=== PATIENT | male | born 1985 | race Caucasian/White ===

== ENCOUNTER 2022-11-27 05:57 | Emergency (ER) | payer OTHER, SELFPAY ==
[2022-11-27 06:02] VITALS: BP 147/80; PULSE 106; RESP 16; TEMP 36.7; O2SAT 100
[2022-11-27 06:07] VITALS: BP 131/76; PULSE 99; RESP 13; TEMP 36.6; O2SAT 100
--- NOTE | 2022-11-27 06:13 | PC.NURSE ---
Addendum entered by Manuel Canada RN 11/27/22 06:16: Patient stated he took 1 5mg Tadalafil and 1 Claritin. Original Note: Patient stated he was worried about taking a Claritin and Tadalafil.
--- NOTE | 2022-11-27 06:31 | ED_ITS ---
HPI - Anxiety General Chief Complaint: Anxiety Stated Complaint: anxiety Time Seen by Provider: 11/27/22 06:31 History of Present Illness HPI narrative: Patient very nervous because he had taken a dose of Cialis and Zyrtec at the same time, and then panicked about whether or not they may interact with each other. He has history of anxiety and they usually get better with just meditation. Related Data Allergies Allergy/AdvReac Type Severity Reaction Status Date / Time No Known Allergies Allergy Verified 11/27/22 06:08 Review of Systems Review of Systems: CONST: No fever. HEENT: No sore throat C/V: Palpitations RESP: No cough GI: No abdominal pain : No dysuria. M/S: No joint pain. SKIN: No rash. NEURO: [No headache or focal numbness or weakness] PSYCH: Anxiety [facility] Past Medical History Medical History (Updated 11/27/22 @ 06:43 by Melanie Dee MD) Anxiety Social History Social History Substance use type: does not use Exam Narrative: EXAMINATION OF ORGAN SYSTEMS/BODY AREAS: Constitutional: Vital signs per nursing GENERAL:[No acute distress, non-toxic appearing.] HEAD: Normal with no signs of head trauma. EYES: EOMI, conjunctiva normal ENT: Hearing grossly intact LUNGS: Nonlabored breathing. HEART: Initially tachycardic ABD: [Soft], [nontender to palpation] EXT: Normal range of motion SKIN: [No rashes or lesions.] NEURO: [Alert and oriented x 3. No gross focal sensory or strength deficits.] PSYCH: Anxious affect Course Vital Signs Vital signs: Vital Signs Temperature 98.0 F 11/27/22 06:02 Pulse Rate 106 H 11/27/22 06:02 Respiratory Rate 16 11/27/22 06:02 Blood Pressure 147/80 H 11/27/22 06:02 Pulse Oximetry 100 11/27/22 06:02 Oxygen Delivery Room Air 11/27/22 06:02 Temperature 98.3 F 11/27/22 06:48 Pulse Rate 88 11/27/22 06:48 Respiratory Rate 17 11/27/22 06:48 Blood Pressure 114/84 11/27/22 06:48 Pulse Oximetry 100 11/27/22 06:48 Oxygen Delivery Room Air 11/27/22 06:02 MDM - Anxiety MDM Narrative Medical decision making narrative: 37-year-old male presenting with anxiety that he should not have taken both Zyrtec and Cialis at the same time, after I reassured him that there are no obvious known interactions, he is feeling much better, states that his symptoms all resolved, his repeat heart rate is normal. He is well-appearing and wants to go home and did not want any other medications at this time. Given return precautions and followup with PCP. Discharge Plan Discharge Clinical Impression: Acute anxiety Patient Disposition: Home, Self-Care Condition: Improved Instructions: Antibiotic Form, Anxiety (ED) Additional Instructions: You can always return for any further issues; follow up with your doctor. Follow-up/Referrals: Cuong Mariscal MD [Physician] - 2 Days PHYSICIAN NOT ON STAFF,NONSTAFF [Non-Staff] -
[2022-11-27 06:48] VITALS: BP 114/84; PULSE 88; RESP 17; TEMP 36.8; O2SAT 100
== END 2022-11-27 06:49 | disposition home or self-care (01) ==
PROVIDERS: Emergency Provider Emergency Medicine; PCP Nurse Practitioner
DX: F41.9 Anxiety disorder, unspecified (principal)
CPT/HCPCS: 99281

== ENCOUNTER 2023-02-12 11:43 | Emergency (ER) | payer OTHER, SELFPAY ==
[2023-02-12 11:54] VITALS: BP 132/81; PULSE 89; RESP 16; TEMP 36.7; O2SAT 99
--- NOTE | 2023-02-12 12:07 | ED.NAVMDI ---
HPI - Nausea/Vomiting/Diarrhea General Chief complaint: Nausea/Vomiting/Diarrhea Stated complaint: Nausea Time Seen by Provider: 02/12/23 12:07 Source: patient and RN notes reviewed Mode of arrival: ambulatory Limitations: no limitations History of Present Illness HPI Narrative: 37 year old male presents to express care today with complaints of having interval of nausea and generalized weakness since . 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 Patient reports that he did not feel well over weekend either with nausea no vomiting and episodes of diarrhea stopping on Saturday with no evidence of any blood in stools. Patient states that he had a regular bowel movement this morning but continues to feel weak and have nausea. Patient reports no known fevers, chills, or sweats reports that child has been ill also. Patient has not taken any OTC medication. MD elicited complaint: nausea, diarrhea and other (weakness) Pertinent past history: other (IBS) Onset (ago): day(s) (4) Description of diarrhea: watery Associated nausea: Yes Associated abdominal pain: No Treatment prior to arrival: none Related Data Allergies Allergy/AdvReac Type Severity Reaction Status Date / Time corn Allergy Mild Unknown Verified 02/12/23 11:58 Cantaloupe Allergy Mild throat Uncoded 02/12/23 11:58 itching Review of Systems Review of Systems: CONSTITUTIONAL: Denies fever, chills, or sweats. ENT: Denies rhinorrhea, congestion, sore throat, or otalgia. CARDIOVASCULAR: Denies chest pain, palpitations, or edema. RESPIRATORY: Denies cough or dyspnea. GASTROINTESTINAL: Reports no abdominal pain, nausea, no vomiting, episodes of diarrhea. GENITOURINARY: Denies dysuria or hematuria. SKIN: Denies rash or itching. MUSCULOSKELETAL: Denies back pain, joint pain, or myalgia. NEUROLOGIC: Denies headache, numbness, or weakness. All systems reviewed & are unremarkable except as noted in HPI and below PMFSH Past Medical History Medical History (Updated 02/12/23 @ 12:54 by Carolyne Soliz NP) Anxiety IBS (irritable bowel syndrome) Social History Social History (Updated 02/12/23 @ 12:53 by Carolyne Soliz NP) Smoking status: Current every day smoker Tobacco type: cigarettes Alcohol intake: current Alcohol use details: socially Substance use type: does not use Comments At time of signature, agree with nursing past medical, surgical, social and family history. There is no relevant family history pertinent to the presenting complaint Exam Narrative: GENERAL: Well-appearing, well-nourished, and in no acute distress. HEAD: Normocephalic, atraumatic. EYES: PERRLA, conjunctivae clear, and EOMI. ENT: Nares clear. Mucous membranes moist. Oropharynx without edema, erythema, or lesions. Tonsils not enlarged and without exudate. NECK: Supple. No lymphadenopathy CHEST: Speaks in full sentences. No respiratory distress. HEART: Regular rate and rhythm. ABDOMEN: Soft, flat, nondistended. No guarding, rebound tenderness, or rigid. No pulsatilla masses. Bowel sounds present in all four quadrants. No organomegaly. Negative Valdes?s sign. No periumbilical tenderness. No Supra public tenderness or distension. Good femoral pulses bilaterally. No hernia noted. No scars or surface trauma. nausea at intervals no diarrhea since Saturday reported continues to have some nausea. SKIN: Warm, dry, no rash. NEURO:? Alert and oriented x3. PSYCH: Normal mood and affect Course Course Emergency Course: Patient is aware of diagnosis, understands and agrees to treatment plan.? Anticipatory guidance given.? Patient agrees to follow-up as directed and is aware of reasons to seek care at the emergency department. Portions of this record may have been created with voice recognition software Level of Care: Express Care Visit Vital Signs Vital signs: Vital Signs
[2023-02-12 12:21] VITALS: BP 127/77; PULSE 105
[2023-02-12 12:23] VITALS: BP 128/89; PULSE 86
[2023-02-12 12:25] VITALS: BP 118/72; PULSE 78
== END 2023-02-12 12:38 | disposition home or self-care (01) ==
PROVIDERS: Emergency Provider Registered Nurse; PCP Nurse Practitioner
DX: R11.0 Nausea (principal); R53.1 Weakness; F17.210 Nicotine dependence, cigarettes, uncomplicated
CPT/HCPCS: 99213; G0463

== ENCOUNTER 2023-02-16 12:02 | Emergency (ER) | payer OTHER, SELFPAY ==
--- NOTE | ~2023-02-16 | CT_ITS ---
EXAMINATION: CT abdomen pelvis w con DATE: 02/16/2023 16:01 INDICATION: Epigastric and left lower quadrant abdominal pain, nausea and diarrhea. TECHNIQUE: Computed tomography (CT) of the abdomen and pelvis was performed with 100 mL Omnipaque-350 intravenous contrast. Automated exposure control and iterative reconstruction technique were employe d. The dose-length product was 426.40 mGy-cm. COMPARISON: None FINDINGS: Lung bases are clear. Heart size is normal. No pericardial or pleural effusion. Liver, gallbladder, s pleen, pancreas, bilateral adrenal glands and kidneys are normal. Bowels including the appendix are n ormal bladder is normal. No free intraperitoneal gas or fluid. No pathologically enlarged abdominal o r pelvic lymphadenopathy. Moderate lower thoracic spondylosis. IMPRESSION: 1. No acute intra-abdominal/pelvic process. Reviewed, dictated and finalized at location A.
[2023-02-16 12:24] VITALS: BP 124/91; PULSE 103; RESP 16; TEMP 36.7; O2SAT 99
[2023-02-16 13:09] LABS: Basophils Percent Auto 0.5 % (0.2-1.2); Eosinophils Percent Auto 0.2 % (0-4.4); Hematocrit 51.3 % (42.0-52.0); Hemoglobin 17.8 g/dL (14.0-18.0); Immature Granulocyte Absolute 0.02 K/mm3 (0.00-0.031); Immature Granulocyte Percent A 0.3 % (0-0.5); Lymphocytes Absolute Auto 1.26 K/mm3 (0.9-3.2); Lymphocytes Percent Auto 20.3 % (18.3-44.2); Mean Corpuscular HGB Conc 34.7 g/dl (32-36); Mean Corpuscular Hemoglobin 29.8 pg (26-34); Mean Corpuscular Volume 85.8 fl (80-100); Monocytes Absolute Auto 0.3 K/mm3 (0.1-0.6); Monocytes Percent Auto 4.7 % (2.6-8.5); Neutrophils Absolute Auto 4.6 K/mm3 (1.3-6.7); Platelet Count Result 258 k/mm3 (150-375); Red Blood Count 5.98 M/mm3 (4.6-6.20); Red Cell Distribution Width 12.6 % (11.5-14.5); White Blood Count 6.2 K/mm3 (4.5-10.0)
[2023-02-16 13:16] LABS: Appearance Urine Clear (Clear); Bacteria Urine None Seen /hpf; Bilirubin Urine Negative (Negative); Blood Urine Negative (Negative); Color Urine Yellow (Yellow); Glucose Urine UA 1+ mg/dL (Negative); Ketones Urine 2+ mg/dL (Negative); Leukocyte Esterase Ur Negative LEU/UL (Negative); Nitrate Urine Negative (Negative); Non Pathogenic Casts 0-2; Protein Urine Trace mg/dL (Negative); RBC Urine 0-2 /hpf (0-2); Specific Grav Ur 1.026 (1.001-1.035); Squamous Epithelial Cell Urine None seen /hpf (Few); WBC Urine 0-5 /hpf
[2023-02-16 13:18] LABS: Add Urine Microscopic? YES
[2023-02-16 13:21] LABS: Alanine Aminotransferase 30 U/L (6-50); Albumin Level 4.7 g/dL (3.5-5.1); Alkaline Phosphatase 75 U/L (38-126); Anion Gap 8 mmol/L (8-16); Aspartate Amino Transferase 29 U/L (17-59); Bilirubin,Total 0.9 mg/dL (0.2-1.3); Blood Urea Nitrogen 13 mg/dL (9-20); Calcium 9.9 mg/dL (8.4-10.2); Carbon Dioxide 29 mmol/L (22-30); Chloride 102 mmol/L (98-107); Estimated CRCL calculation 82 ml/min; Estimated Glomerular Filt Rate > 60; Glucose 148 mg/dL (65-110); Lipase 86 U/L (23-300); Potassium 3.7 mmol/L (3.4-5.0); Sodium 139 mmol/L (137-145)
[2023-02-16 15:00] VITALS: BP 100/72; BP 119/78; PULSE 79; PULSE 83
[2023-02-16 15:02] VITALS: BP 104/77; PULSE 104
[2023-02-16 15:03] VITALS: BP 104/77; PULSE 108; RESP 26; O2SAT 100
[2023-02-16] MEDS: BELLADONNA ALK/PHENOB ELIX 10 ML, MAG HYDROX/ALUMINUM HYD/SIMETH 30 ML, LIDOCAINE HCL 2... PO (15:18)
[2023-02-16] MEDS: SODIUM CHLORIDE 0.9% IV 1,000 ML 999 ML IV CONT (15:18)
[2023-02-16] MEDS: ONDANSETRON INJ 4 MG/2 ML VIAL IV PUSH (15:18)
--- NOTE | 2023-02-16 15:30 | ED.NAVMDI ---
HPI - Nausea/Vomiting/Diarrhea General Chief complaint: Nausea/Vomiting/Diarrhea Stated complaint: nausea, abdominal discomfort Time Seen by Provider: 02/16/23 13:55 Source: patient Mode of arrival: ambulatory Limitations: no limitations History of Present Illness HPI Narrative: Patient is a 37-year-old male, with PMH of IBS, who presents the ED with report of nausea and abdominal pain. Patient reports having stomach issues for the last 2 weeks. He reports having intermittent pain across his upper abdomen for the last 2 weeks, worse and more persistent over the last couple of days. He states pain is worse with eating or drinking. He has not tried anything for the pain. He also reports having persistent nausea and diarrhea over the last couple of weeks. He did vomit once last night. He denies any rectal bleeding, melena, fevers, urinary symptoms. Related Data Allergies Allergy/AdvReac Type Severity Reaction Status Date / Time corn Allergy Mild Unknown Verified 02/16/23 13:49 Cantaloupe Allergy Mild throat Uncoded 02/12/23 11:58 itching Review of Systems Review of Systems: CONSTITUTIONAL: Denies fever, chills, or sweats. CARDIOVASCULAR: Denies chest pain. RESPIRATORY: Denies dyspnea. GASTROINTESTINAL: See HPI. GENITOURINARY: Denies dysuria or hematuria. SKIN: Denies rash or itching. MUSCULOSKELETAL: Denies back pain, joint pain, or myalgia. All systems reviewed & are unremarkable except as noted in HPI and below PMFSH Past Medical History Medical History Anxiety IBS (irritable bowel syndrome) Social History Social History Smoking status: Current every day smoker Tobacco type: cigarettes Alcohol intake: current Alcohol use details: socially Substance use type: does not use Exam Narrative: GENERAL: Well appearing, well-nourished, non-toxic, in no acute distress. HEAD: Normocephalic, atraumatic. NECK: Supple. No adenopathy, no masses. RESPIRATORY: Airway patent, respirations nonlabored. Clear to auscultation bilaterally, no rales, rhonchi, wheezing. CARDIOVASCULAR: Regular rate and rhythm without murmurs, rubs, or gallops. Radial pulses 2+ and equal bilaterally. ABDOMINAL: Soft, tenderness throughout epigastric region, left lower abdomen, nondistended, no hepatosplenomegaly. Normoactive BS. MUSCULOSKELETAL: Moves all extremities. Strength/ROM intact without gross deformities. SKIN: Warm, dry, normal color. No rashes. NEURO: A&O X3. Speech clear. Cranial nerves II-XII grossly intact. Steady gait. No ataxic movements. PSYCHIATRIC: Appropriate mood and affect. Normal interaction. Course Vital Signs Vital signs: Vital Signs Temperature 98.0 F 02/16/23 12:24 Pulse Rate 103 H 02/16/23 12:24 Respiratory Rate 16 02/16/23 12:24 Blood Pressure 124/91 H 02/16/23 12:24 Pulse Oximetry 99 02/16/23 12:24 Oxygen Delivery Room Air 02/16/23 12:24 Temperature 98.0 F 02/16/23 12:24 Pulse Rate 108 H 02/16/23 15:03 Respiratory Rate 26 H 02/16/23 15:03 Blood Pressure 104/77 02/16/23 15:03 Pulse Oximetry 100 02/16/23 15:03 Oxygen Delivery Room Air 02/16/23 12:24 MDM - Nausea/Vomiting/Diarrhea MDM Narrative Medical decision making narrative: Patient presented to ED with 2-week history of upper abdominal pain, intermittent nausea, vomiting, diarrhea. Pain worse with eating and drinking. Consistent with dyspepsia. Vitals stable upon arrival. Patient borderline tachycardic, though did report feeling very anxious initially. CBC without leukocytosis. CMP unremarkable, stable kidney function. Normal electrolytes. Blood glucose mildly elevated. Urinalysis with 2+ ketones, no signs of infection. CT scan of abdomen pelvis obtained and without acute abnormalities. No signs of gastritis, bowel/pancreas/gallbladder abnormality. Patient was given fl
[2023-02-16 17:48] VITALS: BP 109/56; PULSE 79; RESP 18; O2SAT 99
== END 2023-02-16 17:49 | disposition home or self-care (01) ==
PROVIDERS: Emergency Medicine; Emergency Provider Physician Assistant; PCP Nurse Practitioner
DX: R10.13 Epigastric pain (principal); R11.0 Nausea; K58.9 Irritable bowel syndrome, unspecified; F17.210 Nicotine dependence, cigarettes, uncomplicated
CPT/HCPCS: 36415; 74177; 80053; 81001; 83690; 85025; 96361; 96374; 99284; A9270; J2405; J7030; Q9967

== ENCOUNTER 2023-03-16 18:25 | Emergency (ER) | payer OTHER, SELFPAY ==
[2023-03-16] VITALS (8 sets, daily range): BP systolic 104–141; BP diastolic 74–85; PULSE 79–101; RESP 15–20; TEMP 36.5–36.7; O2SAT 98–100
--- NOTE | 2023-03-16 18:27 | ECG_ITS ---
Measurements Intervals [place] Rate: 99 P: 67 CO: 134 QRS: 30 QRSD: 76 T: 65 QT: 307 QTc: 395 Interpretive Statements SINUS RHYTHM POSSIBLE LEFT ATRIAL ENLARGEMENT DELAYED PRECORDIAL R/S TRANSITION BORDERLINE ECG NO PREVIOUS ECG AVAILABLE FOR COMPARISON Electronically Signed On 03-17-2023 8:43:35 CDT by Cruz Phan D.O.
--- NOTE | 2023-03-16 18:41 | PC.NURSE ---
pt reports he passes out while getting blood drawn and is requesting to wait until he gets in a room to obtain blood.
[2023-03-16 22:06] LABS: Basophils Percent Auto 0.5 % (0.2-1.2); Eosinophils Percent Auto 0.5 % (0-4.4); Hematocrit 53.7 % (42.0-52.0); Hemoglobin 18.9 g/dL (14.0-18.0); Immature Granulocyte Absolute 0.02 K/mm3 (0.00-0.031); Immature Granulocyte Percent A 0.3 % (0-0.5); Lymphocytes Absolute Auto 2.04 K/mm3 (0.9-3.2); Lymphocytes Percent Auto 27.2 % (18.3-44.2); Mean Corpuscular HGB Conc 35.2 g/dl (32-36); Mean Corpuscular Volume 85.4 fl (80-100); Monocytes Absolute Auto 0.4 K/mm3 (0.1-0.6); Monocytes Percent Auto 4.7 % (2.6-8.5); Neutrophils Percent Auto 66.8 % (45.5-73.1); Platelet Count Result 253 k/mm3 (150-375); Red Blood Count 6.29 M/mm3 (4.6-6.20); Red Cell Distribution Width 12.5 % (11.5-14.5); White Blood Count 7.5 K/mm3 (4.5-10.0)
[2023-03-16 22:16] LABS: Alanine Aminotransferase 28 U/L (6-50); Albumin Level 5.2 g/dL (3.5-5.1); Alkaline Phosphatase 83 U/L (38-126); Anion Gap 14 mmol/L (8-16); Aspartate Amino Transferase 23 U/L (17-59); Bilirubin,Total 0.8 mg/dL (0.2-1.3); Blood Urea Nitrogen 12 mg/dL (9-20); Carbon Dioxide 25 mmol/L (22-30); Chloride 103 mmol/L (98-107); Estimated CRCL calculation 69 ml/min; Estimated Glomerular Filt Rate > 60; Glucose 97 mg/dL (65-110); Sodium 142 mmol/L (137-145)
[2023-03-16] MEDS: SODIUM CHLORIDE 0.9% IV 1,000 ML 999 ML IV CONT ×2 (22:16→23:10)
[2023-03-16] MEDS: PROCHLORPERAZINE EDISYLATE 10 MG/2 ML VIAL IV PUSH (22:17)
[2023-03-16 22:21] LABS: Magnesium 2.3 mg/dL (1.6-2.3)
[2023-03-16 23:27] LABS: Appearance Urine Clear (Clear); Bilirubin Urine Negative (Negative); Blood Urine Negative (Negative); Color Urine Yellow (Yellow); Glucose Urine UA Negative (Negative); Ketones Urine 1+ mg/dL (Negative); Leukocyte Esterase Ur Negative LEU/UL (Negative); Nitrate Urine Negative (Negative); Protein Urine Negative (Negative); pH Urine 6.5 (5.0-9.0)
[2023-03-16 23:46] LABS: Add Urine Microscopic? NO
--- NOTE | 2023-03-17 00:19 | ED.GENADULT ---
HPI - General Adult General Chief complaint: Syncope Stated complaint: feels like going to pass out Time Seen by Provider: 03/16/23 21:51 History of Present Illness HPI narrative: Patient 37-year-old gentleman who presents emerged part with chief complaint of lightheadedness and nausea. 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 The patient reports that he is to see an an/syq 13 nav/c2 operator in the near future and reports that has been feeling nauseated and has had some abdominal cramping. The patient reports that his abdomen is feeling much better at this time but does report that he still feels nauseated and reports that he is felt lightheaded with it. Related Data Allergies Allergy/AdvReac Type Severity Reaction Status Date / Time corn Allergy Mild Unknown Verified 03/16/23 21:46 Cantaloupe Allergy Mild throat Uncoded 02/12/23 11:58 itching Review of Systems Review of Systems: A 10 system review of systems was completed on the patient and is negative except for what is stated in the HPI. Nursing and ancillary documentation was reviewed. [facility] Past Medical History Medical History Anxiety IBS (irritable bowel syndrome) Social History Social History Smoking status: Current every day smoker Tobacco type: cigarettes Alcohol intake: current Alcohol use details: socially Substance use type: does not use Exam Narrative: GENERAL: Well-appearing, well-nourished, and in no acute distress. HEAD: Normocephalic, atraumatic. EYES: PERRLA and EOMI. ENT: Nares clear, no rhinorrhea or epistaxis. Mucous membranes moist. NECK: Supple. CHEST: Clear to auscultation. No respiratory distress. HEART: Regular rate and rhythm. No murmur heard. Normal peripheral pulses. ABDOMEN: Soft, nontender, nondistended, normal active bowel sounds. EXTREMITIES: Normal range of motion. No edema. SKIN: Warm, dry, no rash. NEURO: No focal deficits. Alert and oriented x3. PSYCH: Normal mood and affect. Course Vital Signs Vital signs: Vital Signs Temperature 36.5 C 03/16/23 18:29 Pulse Rate 99 03/16/23 18:29 Respiratory Rate 18 03/16/23 18:29 Blood Pressure 141/85 H 03/16/23 18:29 Pulse Oximetry 100 03/16/23 18:29 Oxygen Delivery Room Air 03/16/23 18:29 Temperature 36.7 C 03/16/23 23:05 Pulse Rate 90 03/16/23 23:05 Respiratory Rate 18 03/16/23 23:05 Blood Pressure 104/74 03/16/23 23:05 Pulse Oximetry 98 03/16/23 23:05 Oxygen Delivery Room Air 03/16/23 18:29 Medical Decision Making MDM Narrative Medical decision making narrative: Differential diagnosis includes dehydration, nausea vomiting, near-syncope Laboratory studies were obtained which showed a CBC with a hemoglobin of 18.9 electrolytes were within normal limits urinalysis showed 1+ ketones and specific gravity 1.020 Patient received IV Compazine in the ER and is feeling much better also received 2 L of normal saline boluses. Vital Signs Vital Signs: Vital Signs Temperature 36.5 C 03/16/23 18:29 Pulse Rate 99 03/16/23 18:29 Respiratory Rate 18 03/16/23 18:29 Blood Pressure 141/85 H 03/16/23 18:29 Pulse Oximetry 100 03/16/23 18:29 Oxygen Delivery Room Air 03/16/23 18:29 Temperature 36.7 C 03/16/23 23:05 Pulse Rate 90 03/16/23 23:05 Respiratory Rate 18 03/16/23 23:05 Blood Pressure 104/74 03/16/23 23:05 Pulse Oximetry 98 03/16/23 23:05 Oxygen Delivery Room Air 03/16/23 18:29 Lab Data 03/16/23 21:59 03/16/23 21:59 Labs: Lab Results 03/16/23 03/16/23 Range/Units 21:59 23:13 WBC 7.5 (4.5-10.0) K/mm3 RBC 6.29 H (4.6-6.20) M/mm3 Hgb 18.9 H (14.0-18.0) g/dL Hct 53.7 H (42.0-52.0) % MCV 85.4 (80-100) fl MCH 30.0 (26-
[2023-03-17 00:29] VITALS: BP 126/86; PULSE 92; RESP 20; O2SAT 98
== END 2023-03-17 00:30 | disposition home or self-care (01) ==
PROVIDERS: Emergency Medicine; Emergency Provider Emergency Medicine; PCP Nurse Practitioner
DX: R55 Syncope and collapse (principal); E86.0 Dehydration; R11.0 Nausea; K58.9 Irritable bowel syndrome, unspecified; F17.210 Nicotine dependence, cigarettes, uncomplicated; R94.31 Abnormal electrocardiogram [ECG] [EKG]
CPT/HCPCS: 36415; 80053; 81003; 83735; 85025; 93005; 96361; 96374; 99284; J0780; J7030

== ENCOUNTER → 2023-07-19 09:04 | Outpatient (CLI) | payer OTHER, SELFPAY ==
--- NOTE | ~2023-07-19 | US_ITS ---
US right upper quadrant INDICATION: Abdomen pain PROCEDURE: Realtime right upper abdominal ultrasound. COMPARISON: No prior studies for comparison. FINDINGS: The pancreas is normal without focal mass or pancreatic ductal dilation. Liver echotexture is normal without focal mass or intrahepatic biliary dilatation. There is normal directional flow i n the portal vein. The gallbladder is normal without stones, gallbladder wall thickening or pericholecystic fluid. Comm on bile duct measures 3 mm. No sonographic Valdes's sign. IMPRESSION: 1: Normal limited abdominal ultrasound. Reviewed, dictated and finalized at location B. [employer]
== END ==
PROVIDERS: PCP Family Medicine; Visit Provider Internal Medicine Gastroenterology
DX: R10.9 Unspecified abdominal pain (principal)
CPT/HCPCS: 76705

== ENCOUNTER 2024-01-06 09:15 | Emergency (ER) | payer OTHER, SELFPAY ==
--- NOTE | ~2024-01-06 | XR_ITS ---
XR elbow RT min 3V DATE: 01/06/2024 10:18 INDICATION: Elbow and forearm pain TECHNIQUE: 4 views of right elbow COMPARISON: None FINDINGS: No fracture or dislocation or joint effusion. No periosteal reaction or bone destruction. J oint spaces are preserved. IMPRESSION: Negative Reviewed, dictated and finalized at location B. IMPRESSION: Negative
--- NOTE | ~2024-01-06 | XR_ITS ---
XR forearm RT 2V DATE: 01/06/2024 10:18 INDICATION: Pain TECHNIQUE: AP and lateral views COMPARISON: None FINDINGS: No fracture or dislocation, periosteal reaction or bone destruction. IMPRESSION: Negative Reviewed, dictated and finalized at location B. IMPRESSION: Negative
[2024-01-06 09:32] VITALS: BP 136/98; PULSE 101; RESP 16; TEMP 37.1; O2SAT 99
--- NOTE | 2024-01-06 10:29 | ED.GENADULT ---
HPI - General Adult General Chief complaint: Extremity Injury, Upper <Kimberly Potts December, Last Filed: 01/06/24 10:36> Stated complaint: arm swelling, pain <Kimberly Potts December - Last Filed: 01/06/24 10:36> Time Seen by Provider: 01/06/24 09:36 <Kimberly Potts December, - Last Filed: 01/06/24 10:36> History of Present Illness HPI narrative: Justin Olvera is a 38 y/o male who presents with reports of right forearm pain. He states that he typically has pain chronically from his right elbow to his right fifth phalanx that he states it tendonitis/ however the pain got worse yesterday more localized to his right forearm and he noticed that it got a little swollen since last night Denies any known trauma/ injury <Kimberly Potts December, - Last Filed: 01/06/24 10:36> Related Data Allergies/adverse reactions: Allergies Allergy/AdvReac Type Severity Reaction Status Date / Time corn Allergy Mild Unknown Verified 01/06/24 09:38 Cantaloupe Allergy Mild throat Uncoded 01/06/24 09:38 itching <Kimberly Potts December, - Last Filed: 01/06/24 10:36> Review of Systems Review of Systems: All systems reviewed & are unremarkable except as noted in HPI and below <Kimberly Potts December, - Last Filed: 01/06/24 10:36> PMFSH Past Medical History Medical History: Medical History Anxiety IBS (irritable bowel syndrome) <Kimberly Potts December, - Last Filed: 01/06/24 10:36> Social History Social History: Social History Smoking status: Current every day smoker Tobacco type: cigarettes Alcohol intake: current Alcohol use details: socially Substance use type: does not use <Kimberly Potts December Last Filed: 01/06/24 10:36> Exam Narrative: GENERAL: Well-appearing, well-nourished, and in no acute distress. HEAD: Normocephalic, atraumatic. EYES: PERRLA and EOMI. ENT: Nares clear, no rhinorrhea or epistaxis. Mucous membranes moist. Oropharynx without tonsillar hypertrophy exudate or other lesions. NECK: Supple. No adenopathy or masses. No carotid bruits or JVD CHEST: Clear to auscultation. No respiratory distress. No wheezes rales or rhonchi HEART: Regular rate and rhythm. No murmur heard. Normal peripheral pulses. ABDOMEN: Soft, nontender, nondistended, normal active bowel sounds. EXTREMITIES: Normal range of motion. No edema. SKIN: Warm, dry, no rash. NEURO: No focal deficits. Alert and oriented x3. PSYCH: Normal mood and affect. <Kimberly Rios, DANISH - Last Filed: 01/06/24 10:36> Course ELEVATORS INSPECTOR/PA Physician Supervision I agree with midlevel documentation; I performed the medical decision making component of this evaluation. <Melanie Dee MD - Last Filed: 01/06/24 12:07> Vital Signs Vital signs: Vital Signs Temperature 98.7 F 01/06/24 09:32 Pulse Rate 101 H 01/06/24 09:32 Respiratory Rate 16 01/06/24 09:32 Blood Pressure 136/98 H 01/06/24 09:32 Pulse Oximetry 99 01/06/24 09:32 Oxygen Delivery Room Air 01/06/24 09:32 Temperature 98.6 F 01/06/24 10:56 Pulse Rate 97 01/06/24 10:56 Respiratory Rate 16 01/06/24 10:56 Blood Pressure 123/94 H 01/06/24 10:56 Pulse Oximetry 98 01/06/24 10:56 Oxygen Delivery Room Air 01/06/24 09:32 <Kimberly Rios, SPECIAL MACHINE STITCHER - Last Filed: 01/06/24 10:36> Vital Signs Temperature 98.7 F 01/06/24 09:32 Pulse Rate 101 H 01/06/24 09:32 Respiratory Rate 16 01/06/24 09:32 Blood Pressure 136/98 H 01/06/24 09:32 Pulse Oximetry 99 01/06/24 09:32 Oxygen Delivery Room Air 01/06/24 09:32 Temperature 98.6 F 01/06/24 10:56 Pulse Rate 97 01/06/24 10:56 Respiratory Rate 16 01/06/24 10:56 Blood Pressure 123/94 H 01/06/24 10:56 Pulse Oximetry 98 01/06/24 10:56 Oxygen Delivery Room Air 01/06/24 09:32 <Melanie Dee MD - Last Filed: 01/06/24 12:07> Medical Decision Making MDM Narrative Medical
[2024-01-06 10:56] VITALS: BP 123/94; PULSE 97; RESP 16; TEMP 37; O2SAT 98
== END 2024-01-06 10:58 | disposition home or self-care (01) ==
PROVIDERS: Emergency Provider Nurse Practitioner Family; PCP Family Medicine
DX: S56.911A Strain of unspecified muscles, fascia and tendons at forearm level, right arm, initial encounter (principal); K58.9 Irritable bowel syndrome, unspecified; F17.210 Nicotine dependence, cigarettes, uncomplicated; X58.XXXA Exposure to other specified factors, initial encounter
CPT/HCPCS: 73080; 73090; 99283; 99284